=== PATIENT | female | born 1995 | race Caucasian/White ===

== ENCOUNTER 2017-12-28 20:56 | Emergency (ER) | END 2017-12-28 22:12 | disposition home or self-care (01) ==

== ENCOUNTER 2018-02-04 23:27 | Emergency (ER) | END 2018-02-05 03:01 | disposition home or self-care (01) ==

== ENCOUNTER 2018-02-22 18:04 | Emergency (ER) | END 2018-02-22 21:42 | disposition home or self-care (01) ==

== ENCOUNTER 2018-05-10 18:40 | Emergency (ER) | payer BC ==
[~2018-05-10] VITALS: Ht 160 cm; Wt 71.5 kg
[~2018-05-10 18:40] MED LIST: HYDR-3980 PO; LEVE-5 PO; LEVE750T70 PO
[2018-05-10 18:50] VITALS: Ht 160 cm; Wt 71.5 kg
[2018-05-10 19:26] VITALS: BP 132/81; PULSE 79; RESP 18
[2018-05-10] MEDS ORDERED: IBUP-1542 PO (19:51)
--- NOTE | 2018-05-10 19:53 | ERD ---
ER Documentation Chief Complaint Chief Complaint chest pain radiating to left arm x 1 week HPI Patient is a 23-year-old female with seizures who presents with chest pain. The patient has left-sided chest pain which started 1 week ago. Yesterday the pain was worse. The pain has been constant. The patient has had no treatment as of yet. The patient denies any trauma. The patient has had no recent seizure. Upon review of old medical records the patient has multiple visits to the ER. The patient does not currently have a primary doctor. ROS All systems reviewed and are negative except as per history of present illness. Medications Home Meds Active Scripts Ibuprofen* (Motrin*) 600 Mg Tab, 600 MG PO Q6H PRN for PAIN AND OR ELEVATED TEMP, #30 TAB Prov:EDUARDO NEIL MD 05/10/18 Hydrocodone/Acetaminophen ([place] 10-325 Tablet) 1 Each Tablet, 1 TAB PO Q6H PRN for PAIN, #7 TAB Prov:TODD ARNOLDSTOLOS A. DO 02/22/18 Levetiracetam* (Keppra*) 750 Mg Tablet, 750 MG PO BID, #60 TAB Prov:LEKKOS,APOSTOLOS A. DO 02/22/18 Reported Medications Levetiracetam* (Keppra*) 500 Mg Tablet, 500 MG PO BID, TAB 02/22/18 Allergies Allergies: Coded Allergies: No Known Allergies (Unverified Allergy, Unknown, 02/22/18) PMhx/Soc History of Surgery: No Anesthesia Reaction: No Hx Neurological Disorder: Yes (SEIZURES, MIGRAINES) Hx Respiratory Disorders: Yes (BRONCHITIS) Hx Cardiac Disorders: No Hx Psychiatric Problems: No Hx Miscellaneous Medical Probl: Yes (SEIZURES) Hx Alcohol Use: No Hx Substance Use: No Hx Tobacco Use: No Smoking Status: Never smoker FmHx Family History: No coronary disease Physical Exam Vitals Vital Signs Date Temp Pulse Resp B/P (MAP) Pulse Ox O2 O2 Flow FiO2 Time Delivery Rate 05/10/18 98.8 79 18 132/81 99 19:26 (98) 05/10/18 98.8 85 18 132/80 99 18:50 (97) Physical Exam Const: No acute distress Head: Atraumatic Eyes: Normal Conjunctiva ENT: Normal External Ears, Nose and Mouth. Neck: Full range of motion. No meningismus. Resp: Clear to auscultation bilaterally Cardio: Regular rate and rhythm, no murmurs Abd: Soft, non tender, non distended. Normal bowel sounds Skin: No petechiae or rashes Back: No midline or flank tenderness Ext: No cyanosis, or edema Neur: Awake and alert Psych: Normal Mood and Affect Results 24 hrs Laboratory Tests Test 05/10/18 19:17 POC Beta HCG, Qualitative NEGATIVE Current Medications Medications Dose Sig/Mari Start Time Status Last (Trade) Ordered Route PRN Stop Time Admin Dose Reason Admin Ibuprofen 800 mg ONCE ONCE 05/10/18 DC 05/10/18 (Motrin) PO 20:00 19:38 05/10/18 20:01 Procedures/MDM EKG read by me: Rate/Rhythm: Regular rate and rhythm at a rate of 79 Intervals: Normal Impression: No evidence of ischemia or arrhythmia Chest x-ray negative per radiology. test negative. Patient is a 23-year-old female with seizure who presents with chest pain. EKG is negative. Chest x-ray was negative. test is negative. At this point I doubt acute coronary syndrome, pneumonia, pneumothorax, pulmonary embolism, or aortic dissection. The patient will be discharged home with a prescription for ibuprofen. She should follow-up with a local clinics within 24-48 hours for reevaluation. Departure Diagnosis: Primary Impression: Chest pain Chest pain type: unspecified Qualified Codes: R07.9 - Chest pain, unspecified Condition: Fair Patient Instructions: Chest Pain, Uncertain Cause Referrals: [facility] YOU HAVE RECEIVED A MEDICAL SCREENING EXAM AND THE RESULTS INDICATE THAT YOU DO NOT HAVE A CONDITION THAT REQUIRES URGENT TREATMENT IN THE EMERGENCY DEPARTMENT. FURTHER EVALUATION AND TREATMENT OF YOUR CONDITION CAN WAIT UNTIL YOU ARE SEEN IN YOUR DOCTORS OFFICE WITHIN THE NEXT 1-2 DAYS. IT IS YOUR RESPONSIBILITY TO MAKE AN APPOINTMENT FOR FOLOW-UP CARE. IF YOU HAVE A PRIMARY DOCTOR --you should call your primary doctor and schedule an appointment IF YOU DO NOT HAVE A PRIMARY DOCTOR YOU CAN CALL OUR PHYSICIAN REFERRAL HOTLINE AT IF YOU CAN NOT AFFORD TO SEE A PHYSICIAN YOU CAN CHOSE FROM THE FOLLOWING [facility] [address] [facility]. [facility] [address] [facility] [address] [facility]. [facility] [address] [facility]. [facility] [address] [facility]. [facility] [address] Additional Instructions: Call your primary care doctor TOMORROW for an appointment during the next 1-2 days.See the doctor sooner or return here if your condition worsens before your appointment time. EDUARDO NEIL MD May 10, 2018 19:53
[2018-05-10] MEDS ORDERED: IBUPROFEN 800 MG TAB PO ONE (20:00)
== END 2018-05-10 20:23 | disposition home or self-care (01) ==
LOC: E/R 18:40
DX: R07.9 Chest pain, unspecified (principal)
CPT/HCPCS: 71045; 81025; 93005; 99284; Z7610

== ENCOUNTER 2018-08-16 13:06 | Emergency (ER) | payer BC ==
[~2018-08-16] VITALS: Ht 160 cm; Wt 70.7 kg
[~2018-08-16 13:06] MED LIST changes: +IBUP-1542 PO
[2018-08-16 13:09] VITALS: BP 124/62; PULSE 89; RESP 22; Ht 160 cm; Wt 70.7 kg
[2018-08-16] MEDS ORDERED: SOD CHLORIDE 0.9% 1,000 ML IV STA (13:22)
[2018-08-16] MEDS ORDERED: ACET500C5 PO (15:31)
[2018-08-16] MEDS ORDERED: METO10TA92 PO (15:31)
[2018-08-16] MEDS ORDERED: CEPH-443 PO (15:31)
--- NOTE | 2018-08-16 16:04 | ERD ---
ER Documentation Chief Complaint Chief Complaint c/o abdominal pain x1 week, with dizziness. No BM x3 days. 9.5wks HPI 23-year-old female patient with no significant past medical history presents to ED complaining of abdominal pain that started 1 week ago. States that it is mainly in the right lower quadrant. Describes as sharp and rates a 9 out of 10. States her last menstruation was on June 10, 2018. She is a . Denies any wheezing, shortness of breath, nausea, vomiting, diarrhea, neck stiffness. ROS All systems reviewed and are negative except as per history of present illness. Medications Home Meds Active Scripts Cephalexin* (Keflex*) 500 Mg Capsule, 500 MG PO QID for 7 Days, CAP Prov:YAZMIN BRADFORD PA-C 08/16/18 Acetaminophen* (Tylophen*) 500 Mg Capsule, 1 CAP PO Q6H PRN for PAIN AND OR ELEVATED TEMP, #20 CAP Prov:YAZMIN BRADFORD PA-C 08/16/18 Metoclopramide* (Reglan*) 10 Mg Tablet, 10 MG PO Q6 PRN for NAUSEA AND/OR VOMITING, #10 TAB Prov:YAZMIN BRADFORD PA-C 08/16/18 Ibuprofen* (Motrin*) 600 Mg Tab, 600 MG PO Q6H PRN for PAIN AND OR ELEVATED TEMP, #30 TAB Prov:EDUARDO NEIL MD 05/10/18 Hydrocodone/Acetaminophen ([place] 10-325 Tablet) 1 Each Tablet, 1 TAB PO Q6H PRN for PAIN, #7 TAB Prov:KRISH ARNOLD DO 02/22/18 Levetiracetam* (Keppra*) 750 Mg Tablet, 750 MG PO BID, #60 TAB Prov:KRISH ARNOLD DO 02/22/18 Reported Medications Levetiracetam* (Keppra*) 500 Mg Tablet, 500 MG PO BID, TAB 02/22/18 Allergies Allergies: Coded Allergies: No Known Allergies (Unverified Allergy, Unknown, 02/22/18) PMhx/Soc History of Surgery: No Anesthesia Reaction: No Hx Neurological Disorder: Yes (SEIZURES, MIGRAINES) Hx Respiratory Disorders: Yes (BRONCHITIS) Hx Cardiac Disorders: No Hx Psychiatric Problems: No Hx Miscellaneous Medical Probl: Yes (SEIZURES) Hx Alcohol Use: No Hx Substance Use: No Hx Tobacco Use: No Smoking Status: Never smoker FmHx Family History: No diabetes, No coronary disease Physical Exam Vitals Vital Signs Date Temp Pulse Resp B/P (MAP) Pulse Ox O2 O2 Flow FiO2 Time Delivery Rate 08/16/18 99.2 89 22 124/62 100 13:09 (82) Physical Exam Const: Stp-tfu-gihbfocaq, well-nourished. In no acute distress. Head: Atraumatic, normocephalic Eyes: Normal Conjunctiva without injection. No purulent discharge. ENT: Normal external ear, nose. Moist oropharynx without tonsillar exudates. Non -erythematous pharynx. Uvula midline. No drooling. No trismus. Neck: No cervical midline tenderness. Full range of motion. No meningismus. No cervical lymphadenopathy. No JVD. Resp: Clear to auscultation bilaterally. No wheezing, rhonchi, rales, or crackles. No accessory muscle use. No retractions. Cardio: Regular rate and rhythm. No murmurs, rubs or gallops. Abd: Soft, right and left lower quadrant tenderness, non distended. Normal bowel sounds. No palpable masses. No rebound tenderness. No guarding. Negative McBurney's point. Negative psoas sign. Negative obturator sign. Skin: No petechiae or rashes Back: No midline tenderness. No CVA tenderness. Ext: No cyanosis, or edema. Neur: Awake and alert. Normal gait. Normal coordination. Psych: Normal Mood and Affect Result Diagram: 08/16/18 1337 08/16/18 1337 Results 24 hrs Laboratory Tests Test 08/16/18 13:37 White Blood Count 10.0 10^3/ul Red Blood Count . 10^6/ul Hemoglobin 12.5 g/dl Hematocrit 37.2 % Mean Corpuscular Volume 88.8 fl Mean Corpuscular Hemoglobin 29.8 pg Mean Corpuscular Hemoglobin Concent 33.6 g/dl Red Cell Distribution Width 12.8 % Platelet Count 249 10^3/UL Mean Platelet Volume 9.6 fl Immature Granulocytes % 0.300 % Neutrophils % 71.2 % Lymphocytes % 20.1 % Monocytes % 7.3 % Eosinophils % 0.8 % Basophils % 0.3 % Nucleated Red Blood Cells % 0.0 /100WBC Immature Granulocytes # 0.030 10^3/ul Neutrophils # 7.1 10^3/ul Lymphocytes # 2.0 10^3/ul Monocytes # 0.7 10^3/ul Eosinophils # 0.1 10^3/ul Basophils # 0.0 10^3/ul Nucleated Red Blood Cells # 0.0 10^3/ul Urine Color YELLOW Urine Clarity CLOUDY Urine pH 5.0 Urine Specific [place] 1.035 Urine Ketones 1+ mg/dL Urine Nitrite NEGATIVE mg/dL Urine Bilirubin NEGATIVE mg/dL Urine Urobilinogen NEGATIVE mg/dL Urine Leukocyte Esterase TRACE Raquel/ul Urine Microscopic RBC 2 /HPF Urine Microscopic WBC 3 /HPF Urine Squamous Epithelial Cells MANY /HPF Urine Bacteria FEW /HPF Urine Mucus FEW /HPF Urine Hemoglobin NEGATIVE mg/dL Urine Glucose NEGATIVE mg/dL Urine Total Protein 1+ mg/dl Sodium Level 136 mmol/L Potassium Level 3.8 mmol/L Chloride Level 105 mmol/L Carbon Dioxide Level 21 mmol/L Anion Gap 10 Blood Urea Nitrogen 11 mg/dl Creatinine 0.59 mg/dl Est Glomerular Filtrat Rate mL/min > 60 mL/min Glucose Level 88 mg/dl Calcium Level 8.7 mg/dl Total Bilirubin 0.3 mg/dl Direct Bilirubin 0.00 mg/dl Indirect Bilirubin 0.3 mg/dl Aspartate Amino Transf (AST/SGOT) 18 IU/L Alanine Aminotransferase (ALT/SGPT) 20 IU/L Alkaline Phosphatase 55 IU/L Total Protein 7.2 g/dl Albumin 3.9 g/dl Globulin 3.30 g/dl Albumin/Globulin Ratio 1.18 Lipase 49 U/L Beta HCG, Quantitative 87592.0 mIU/ml Current Medications Medications Dose Sig/Mari Start Time Status Last (Trade) Ordered Route PRN Stop Time Admin Dose Reason Admin Sodium 1,000 ml @ Q1H STAT 08/16/18 DC 08/16/18 Chloride 1,000 mls/hr IV 13:22 08/16/18 13:55 14:21 Procedures/MDM 23-year-old female patient with no significant past medical history presents to the ED, with pelvic pain in her . Patient is a . Patient is afebrile and nontoxic-appearing. An ultrasound, beta-hCG, CBC, type and RH, UA was ordered to evaluate patient. CBC: No evidence of severe infection or anemia Urine: No elevation in nitrites, trace leukocyte esterase, hematuria. Few bacteria. Rh: 81558. No indication for Rhogam at this time. beta Hcg: O positive IMPRESSION: 1. The appendix is not visualized. 2. There is no free fluid in the pelvis IMPRESSION: Single intrauterine gestation of approximate gestational age 9 weeks 1 days by ultrasound criteria with positive heart beat. No subchorionic hemorrhage. She has a single IUP of 9 weeks, 1 day. Patient was noted to have trace leukocyte esterase and will be treated for urinary tract infection in her . When patient initially presented she stated that she had some right lower pelvic pain, ultrasound did not visualize an appendix however if patient still has any worsening abdominal pain, she should return to the ED in 8-12 hours for reexamination of the abdomen. Patient is afebrile and nontoxic appearing. No Leukocytosis. Patient agreed with observation plan. Patient's bleeding symptoms have stabilized while in the department. Low suspicion for symptomatic anemia, ectopic , sepsis, PID, appendicitis, ovarian torsion, tubo-ovarian abscess, surgical abdomen, or other emergent conditions. Patient was educated that there is a risk for threatened . Diagnosis: Pain during Discharge medications: Keflex, Tylenol, Reglan Follow up with primary care physician in 1-2 days. Instructed patient to return to the ED sooner for any worsening symptoms. Patient's questions were answered. Patient is hemodynamically stable. Patient understood and agreed with discharge plan. Patient discharged stable. Disclaimer: Inadvertent spelling and grammatical errors are likely due to EHR/dictation software use and do not reflect on the overall quality of patient care. Also, please note that the electronic time recorded on this note does not necessarily reflect the actual time of the patient encounter. Departure Diagnosis: Primary Impression: Pelvic pain during Condition: Stable Patient Instructions: Urinary Tract Infections in Women, : Your First Trimester Changes Referrals: [facility] YOU HAVE RECEIVED A MEDICAL SCREENING EXAM AND THE RESULTS INDICATE THAT YOU DO NOT HAVE A CONDITION THAT REQUIRES URGENT TREATMENT IN THE EMERGENCY DEPARTMENT. FURTHER EVALUATION AND TREATMENT OF YOUR CONDITION CAN WAIT UNTIL YOU ARE SEEN IN YOUR DOCTORS OFFICE WITHIN THE NEXT 1-2 DAYS. IT IS YOUR RESPONSIBILITY TO MAKE AN APPOINTMENT FOR FOLOW-UP CARE. IF YOU HAVE A PRIMARY DOCTOR --you should call your primary doctor and schedule an appointment IF YOU DO NOT HAVE A PRIMARY DOCTOR YOU CAN CALL OUR PHYSICIAN REFERRAL HOTLINE AT IF YOU CAN NOT AFFORD TO SEE A PHYSICIAN YOU CAN CHOSE FROM THE FOLLOWING [facility] [address] [facility] [address] [facility] [address] [facility] [address] [facility] [address] [facility]. [facility] [address] [facility]. [place] YOU HAVE RECEIVED A MEDICAL SCREENING EXAM AND THE RESULTS INDICATE THAT YOU DO NOT HAVE A CONDITION THAT REQUIRES URGENT TREATMENT IN THE EMERGENCY DEPARTMENT. FURTHER EVALUATION AND TREATMENT OF YOUR CONDITION CAN WAIT UNTIL YOU ARE SEEN IN YOUR DOCTORS OFFICE WITHIN THE NEXT 1-2 DAYS. IT IS YOUR RESPONSIBILITY TO MAKE AN APPOINTMENT FOR FOLOW-UP CARE. IF YOU HAVE A PRIMARY DOCTOR --you should call your primary doctor and schedule and appointment IF YOU DO NOT HAVE A PRIMARY DOCTOR YOU CAN CALL OUR PHYSICIAN REFERRAL HOTLINE AT . IF YOU CAN NOT AFFORD TO SEE A PHYSICIAN YOU CAN CHOSE FROM THE FOLLOWING [facility]: [facility] [address] [place] [address] [facility] [address] [place] [address] [facility] [address] [place] [address] [facility]CIAL[facility] Additional Instructions: Return to the ED in 8-12 hours for a reexaminatin of the abdomen if you still have persistent right lower quadrant abdominal pain. See the doctor sooner or return here if your condition worsens before your appointment time. YAZMIN BRADFORD PA-C Aug 16, 2018 15:51
== END 2018-08-16 15:42 | disposition home or self-care (01) ==
LOC: FTE 13:06
DX: O26.891 Other specified pregnancy related conditions, first trimester (principal); R10.2 Pelvic and perineal pain; Z3A.09 9 weeks gestation of pregnancy
CPT/HCPCS: 36415; 76705; 76801; 80053; 81001; 83690; 84702; 85025; 86900; 86901; 96360; 99285; J7030

== ENCOUNTER 2018-08-23 20:20 | Emergency (ER) | payer BC ==
[~2018-08-23] VITALS: Ht 157.5 cm; Wt 71.7 kg
[~2018-08-23 20:20] MED LIST changes: +ACET500C5 PO; +CEPH-443 PO; +METO10TA92 PO
[2018-08-23 20:38] VITALS: Ht 157.5 cm; Wt 71.7 kg
[2018-08-23] MEDS ORDERED: SOD CHLORIDE 0.9% 1,000 ML IV STA (23:51)
[2018-08-23] MEDS ORDERED: ACETAMINOPHEN 325 MG TAB PO STA (23:51)
--- NOTE | 2018-08-24 00:07 | ERD ---
ER Documentation Chief Complaint Chief Complaint VAGINAL BLEEDING AND CRAMPING - HPI 23-year-old female in her 12th week of presents with complaint of vaginal bleeding and abdominal cramping. States that the vaginal bleeding started at 6 PM today. In addition she states she is been having cramping for the past 2 weeks. She was here on August 16, diagnosed with a UTI, and told that if the abdominal pain continues or worsens she would need to come back to get an MRI. She states that the cramping is in the lower right quadrant. Denies fevers, vomiting, diarrhea, flank pain, dysuria, hematuria ROS All systems reviewed and are negative except as per history of present illness. Medications Home Meds Active Scripts Acetaminophen* (Tylophen*) 500 Mg Capsule, 2 CAP PO Q8H PRN for PAIN AND OR ELEVATED TEMP, #20 CAP Prov:ALL VELA 08/24/18 Cephalexin* (Keflex*) 500 Mg Capsule, 500 MG PO QID for 7 Days, CAP Prov:YAZMIN BRADFORD-C 08/16/18 Acetaminophen* (Tylophen*) 500 Mg Capsule, 1 CAP PO Q6H PRN for PAIN AND OR ELEVATED TEMP, #20 CAP Prov:YAZMIN BRADFORD-C 08/16/18 Metoclopramide* (Reglan*) 10 Mg Tablet, 10 MG PO Q6 PRN for NAUSEA AND/OR VOMITING, #10 TAB Prov:YAZMIN BRADFORD-C 08/16/18 Ibuprofen* (Motrin*) 600 Mg Tab, 600 MG PO Q6H PRN for PAIN AND OR ELEVATED TEMP, #30 TAB Prov:EDUARDO NEIL MD 05/10/18 Hydrocodone/Acetaminophen ([place] 10-325 Tablet) 1 Each Tablet, 1 TAB PO Q6H PRN for PAIN, #7 TAB Prov:KRISH ARNOLD DO 02/22/18 Levetiracetam* (Keppra*) 750 Mg Tablet, 750 MG PO BID, #60 TAB Prov:KRISH ARNOLD DO 02/22/18 Reported Medications Levetiracetam* (Keppra*) 500 Mg Tablet, 500 MG PO BID, TAB 02/22/18 Allergies Allergies: Coded Allergies: No Known Allergies (Unverified Allergy, Unknown, 10/14/18) PMhx/Soc History of Surgery: No Anesthesia Reaction: No Hx Neurological Disorder: Yes (SEIZURES, MIGRAINES) Hx Respiratory Disorders: Yes (BRONCHITIS) Hx Cardiac Disorders: No Hx Psychiatric Problems: No Hx Miscellaneous Medical Probl: Yes (SEIZURES) Hx Alcohol Use: No Hx Substance Use: No Hx Tobacco Use: No FmHx Family History: No diabetes, No coronary disease, No other Physical Exam Vitals Physical Exam Const: No acute distress Head: Atraumatic Eyes: Normal Conjunctiva ENT: Normal External Ears, Nose and Mouth. Neck: Full range of motion. No meningismus. Resp: Clear to auscultation bilaterally Cardio: Regular rate and rhythm, no murmurs Abd: Tenderness to palpation with guarding in the upper left quadrant. Normal bowel sounds. No McBurney's tenderness. Negative psoas. Negative Rovsing's. Skin: No petechiae or rashes Back: No midline or flank tenderness Ext: No cyanosis, or edema Neur: Awake and alert Psych: Normal Mood and Affect Result Diagram: 08/24/18 0001 08/24/18 0001 Results 24 hrs Laboratory Tests Test 08/23/18 23:52 08/24/18 00:01 Urine Color YELLOW Urine Clarity SLIGHTLY CLOUDY Urine pH 5.0 Urine Specific [place] 1.029 Urine Ketones TRACE mg/dL Urine Nitrite NEGATIVE mg/dL Urine Bilirubin NEGATIVE mg/dL Urine Urobilinogen NEGATIVE mg/dL Urine Leukocyte Esterase NEGATIVE Raquel/ul Urine Microscopic RBC 0 /HPF Urine Microscopic WBC 1 /HPF Urine Squamous Epithelial Cells FEW /HPF Urine Bacteria FEW /HPF Urine Mucus FEW /HPF Urine Hemoglobin NEGATIVE mg/dL Urine Glucose NEGATIVE mg/dL Urine Total Protein NEGATIVE mg/dl White Blood Count 11.0 10^3/ul Red Blood Count 4.10 10^6/ul Hemoglobin 12.4 g/dl Hematocrit 36.6 % Mean Corpuscular Volume 89.3 fl Mean Corpuscular Hemoglobin 30.2 pg Mean Corpuscular Hemoglobin Concent 33.9 g/dl Red Cell Distribution Width 12.9 % Platelet Count 253 10^3/UL Mean Platelet Volume 9.6 fl Immature Granulocytes % 0.400 % Neutrophils % 65.3 % Lymphocytes % 25.0 % Monocytes % 7.7 % Eosinophils % 1.1 % Basophils % 0.5 % Nucleated Red Blood Cells % 0.0 /100WBC Immature Granulocytes # 0.040 10^3/ul Neutrophils # 7.2 10^3/ul Lymphocytes # 2.7 10^3/ul Monocytes # 0.8 10^3/ul Eosinophils # 0.1 10^3/ul Basophils # 0.1 10^3/ul Nucleated Red Blood Cells # 0.0 10^3/ul Sodium Level 136 mmol/L Potassium Level 3.6 mmol/L Chloride Level 101 mmol/L Carbon Dioxide Level 25 mmol/L Anion Gap 10 Blood Urea Nitrogen 8 mg/dl Creatinine 0.51 mg/dl Est Glomerular Filtrat Rate mL/min > 60 mL/min Glucose Level 97 mg/dl Calcium Level 8.9 mg/dl Total Bilirubin 0.2 mg/dl Direct Bilirubin 0.00 mg/dl Indirect Bilirubin 0.2 mg/dl Aspartate Amino Transf (AST/SGOT) 17 IU/L Alanine Aminotransferase (ALT/SGPT) 15 IU/L Alkaline Phosphatase 51 IU/L Total Protein 7.5 g/dl Albumin 4.1 g/dl Globulin 3.40 g/dl Albumin/Globulin Ratio 1.20 Lipase 40 U/L Beta HCG, Quantitative 22731.0 mIU/ml Current Medications Medications Dose Sig/Mari Start Time Status Last (Trade) Ordered Route PRN Stop Time Admin Dose Reason Admin Sodium 1,000 ml @ Q1H STAT 08/23/18 DC 08/24/18 Chloride 1,000 mls/hr IV 23:51 00:08 08/24/18 00:50 650 mg ONCE STAT 08/23/18 DC 08/24/18 Acetaminophen PO 23:51 00:30 (Tylenol 08/23/18 23:56 Tab) Procedures/MDM DIAGNOSTIC IMAGING REPORT Patient: VIKI PALM : 1995 Age: 23 Sex: F MR #: [id number] DOS: 08/24/18 2351 Ordering MD: ALL VELA Location: [facility] Room/Bed: PROCEDURE: Obstetrical ultrasound. CLINICAL INDICATION: Vaginal bleeding. TECHNIQUE: Multiple sonographic images of the pelvis were obtained with transabdominal technique. Images were obtained with starkey scale and color Doppler. COMPARISON: 08/16/2018. FINDINGS: There is an intrauterine gestational sac with a pole identified. heart tones of 159 beats per minute are identified. The crown-rump length averages 3.73 cm, compatible with 10 weeks and 4 days. The mean sac diameter averages 3.77 cm, compatible with 9 weeks and 1 day. A yolk sac is not visualized. No subchorionic collection is identified. There is no pelvic free fluid. The right ovary measures 3.7 x 2.8 x 2.9 cm and demonstrates normal flow. The left ovary is not visualized. There is a hypoechoic cyst within the right ovary measuring 2.2 x 1.9 x 2.0 cm. There is no suspicious adnexal mass identified. IMPRESSION: Single live intrauterine with an estimated gestational age of 9 weeks and 6 days, with an ultrasound MITCHELL of 03/23/2019. Right ovarian 2.2 cm cyst. Left ovary not visualized. .Jose Caicedo MD, MD Date Time Electronically viewed and signed by .Jose Caicedo MD, MD on 08/24/2018 02:28 .T/ CC: ALL VELA [id number] DIAGNOSTIC IMAGING REPORT Patient: VIKI PALM : 1995 Age: 23 Sex: F MR #: [id number] DOS: 08/24/18 0007 Ordering MD: ALL VELA Location: [facility] Room/Bed: PROCEDURE: Obstetrical ultrasound, limited. CLINICAL INDICATION: Vaginal bleeding. TECHNIQUE: Transabdominal evaluation of the cervix was performed. The images were reviewed on a PACS workstation. COMPARISON: No prior studies are available for comparison. FINDINGS: The cervix is closed measuring 4.7 cm. IMPRESSION: Cervical length of 4.7 cm. .Jose Caicedo MD, MD Date Time Electronically viewed and signed by .Jose Caicedo MD, MD on 08/24/2018 02:25 .T/ CC: ALL VELA [id number] ER Course: CBC, UA, beta quant HCG, type and RH, vaginal US/abdominal US ordered. All WNL. MDM: CBC, UA, beta quant HCG, type and RH, vaginal US/abdominal US ordered. All results within limits. I discussed the case with my supervising physician Dr. Babb regarding with MRI is warranted or not any stated in this case he would not be given patient's history, exam findings, and labs and imaging.. I have low suspicion for ectopic based on results of US, hemodynamic stability, physical exam and patient history. I have low suspicion for septic , pyelonephritis, placenta abrupta, appendicitis, cholecystitis, bowel obstruction, ovarian torsion, symptomatic anema, PID, surgical abdomen, or other life threatening conditions based on patient history, physical exam, and lab/imaging results. Patient discharged with strict ER precautions. Patient advised to follow up with PMD and crime lab technician. All questions answered at discharge. Departure Diagnosis: Primary Impression: Vaginal bleeding in patient at less than 20 weeks gestation Additional Impression: Pelvic pain during Condition: Stable ALL VELA Aug 24, 2018 00:07
[2018-08-24] MEDS ORDERED: ACET500C5 PO (03:16)
[2018-08-24 03:28] VITALS: BP 92/65; PULSE 88; RESP 18
== END 2018-08-24 03:31 | disposition home or self-care (01) ==
LOC: FTE 20:20
DX: O20.9 Hemorrhage in early pregnancy, unspecified (principal); R10.2 Pelvic and perineal pain; O26.891 Other specified pregnancy related conditions, first trimester; Z3A.09 9 weeks gestation of pregnancy
CPT/HCPCS: 76801; 76817; 80053; 81001; 81003; 83690; 84702; 85025; 86900; 86901; J7030; Z7610; 36415; 96360

== ENCOUNTER 2018-10-02 11:35 | Emergency (ER) | payer BC ==
[~2018-10-02] VITALS: Ht 157.5 cm; Wt 72.0 kg
[2018-10-02 11:46] VITALS: RESP 18; Ht 157.5 cm; Wt 72.0 kg
[2018-10-02] MEDS ORDERED: SOD CHLORIDE 0.9% 1,000 ML IV STA (13:21)
[2018-10-02] MEDS ORDERED: ACETAMINOPHEN 325 MG TAB PO STA (13:21)
--- NOTE | 2018-10-02 13:33 | ERD ---
ER Documentation Chief Complaint Chief Complaint pt is bib family with c/o cramps x few days 16 wks preg HPI This is a 23-year-old female who presents ED with complaints of lower pelvic cramping roughly 16 weeks . Patient states that the lower pelvic cramping started this morning and she noticed some light spotting. Patient denies passing any clots. Patient states that the same lower pelvic cramping has occurred 4 times throughout her . Patient was seen at her OB doctor's office at [facility] and was advised to come to the emergency department to have ultrasound performed. Denies fever, chills, nausea, vomiting, diarrhea, constipation, hematemesis, melena, hematochezia, dysuria, hematuria, dizziness, lightheadedness and all other symptoms ROS All systems reviewed and are negative except as per history of present illness. Medications Home Meds Active Scripts Acetaminophen* (Tylophen*) 500 Mg Capsule, 2 CAP PO Q8H PRN for PAIN AND OR ELEVATED TEMP, #20 CAP Prov:ALL VELA 08/24/18 Cephalexin* (Keflex*) 500 Mg Capsule, 500 MG PO QID for 7 Days, CAP Prov:YAZMIN BRADFORD PA-C 08/16/18 Acetaminophen* (Tylophen*) 500 Mg Capsule, 1 CAP PO Q6H PRN for PAIN AND OR ELEVATED TEMP, #20 CAP Prov:YAZMIN BRADFORD PA-C 08/16/18 Metoclopramide* (Reglan*) 10 Mg Tablet, 10 MG PO Q6 PRN for NAUSEA AND/OR VOMITING, #10 TAB Prov:YAZMIN BRADFORD PA-C 08/16/18 Ibuprofen* (Motrin*) 600 Mg Tab, 600 MG PO Q6H PRN for PAIN AND OR ELEVATED TEMP, #30 TAB Prov:EDUARDO NEIL MD 05/10/18 Hydrocodone/Acetaminophen ([place] 10-325 Tablet) 1 Each Tablet, 1 TAB PO Q6H PRN for PAIN, #7 TAB Prov:KRISH ARNOLD DO 02/22/18 Levetiracetam* (Keppra*) 750 Mg Tablet, 750 MG PO BID, #60 TAB Prov:KRISH ARNOLD DO 02/22/18 Reported Medications Levetiracetam* (Keppra*) 500 Mg Tablet, 500 MG PO BID, TAB 02/22/18 Allergies Allergies: Coded Allergies: No Known Allergies (Unverified Allergy, Unknown, 02/22/18) PMhx/Soc History of Surgery: No Anesthesia Reaction: No Hx Neurological Disorder: Yes (SEIZURES, MIGRAINES) Hx Respiratory Disorders: Yes (BRONCHITIS) Hx Cardiac Disorders: No Hx Psychiatric Problems: No Hx Miscellaneous Medical Probl: Yes (SEIZURES) Hx Alcohol Use: No Hx Substance Use: No Hx Tobacco Use: No FmHx Family History: No diabetes Physical Exam Vitals Vital Signs Date Temp Pulse Resp B/P (MAP) Pulse Ox O2 O2 Flow FiO2 Time Delivery Rate 10/02/18 97.9 72 18 109/55 100 11:46 (73) Physical Exam Physical Exam Vitals signs: Reviewed by me. General: Well developed, well nourished, in no acute distress. Patient is awake and alert. Head: Normocephalic, atraumatic. Eyes: Normal conjunctiva, Pupils PERRLA, EOM intact grossly ENT: Pharynx is clear, Moist mucous membranes, external ears, nose and mouth normal Neck: Supple, no masses, lymphadenopathy or JVD Respiratory: Clear to auscultation bilaterally with no wheezing, rhonchi, rales, no distress Cardiovascular: RRR, no murmurs, rubs, or gallops Abdominal: Soft, nondistended, no peritoneal signs, no rigidity, no surgical abdomen, bowel sounds present all 4 quadrants, mild suprapubic tenderness, nontender to palpation all 4 quadrants, McBurney's point nontender, no rebound tenderness : Deferred MSK: No edema, no unilateral swelling, 5/5 strength Back: No midline tenderness. No flank tenderness Neurologic: Alert and oriented, moving all extremities, normal speech, no focal weakness, no cerebellar signs. Normal mentation Skin: warm and dry, No rash Psych: Normal mood Result Diagram: 10/02/18 1349 10/02/18 1349 Results 24 hrs Laboratory Tests Test 10/02/18 13:48 10/02/18 13:49 Urine Color YELLOW Urine Clarity CLEAR Urine pH 5.0 Urine Specific [place] 1.018 Urine Ketones 1+ mg/dL Urine Nitrite NEGATIVE mg/dL Urine Bilirubin NEGATIVE mg/dL Urine Urobilinogen NEGATIVE mg/dL Urine Leukocyte Esterase NEGATIVE Raquel/ul Urine Hemoglobin NEGATIVE mg/dL Urine Glucose NEGATIVE mg/dL Urine Total Protein NEGATIVE mg/dl White Blood Count 10.5 10^3/ul Red Blood Count 4.18 10^6/ul Hemoglobin 12.9 g/dl Hematocrit 38.3 % Mean Corpuscular Volume 91.6 fl Mean Corpuscular Hemoglobin 30.9 pg Mean Corpuscular Hemoglobin Concent 33.7 g/dl Red Cell Distribution Width 12.7 % Platelet Count 231 10^3/UL Mean Platelet Volume 9.7 fl Immature Granulocytes % 0.400 % Neutrophils % 70.1 % Lymphocytes % 21.6 % Monocytes % 6.5 % Eosinophils % 1.0 % Basophils % 0.4 % Nucleated Red Blood Cells % 0.0 /100WBC Immature Granulocytes # 0.040 10^3/ul Neutrophils # 7.4 10^3/ul Lymphocytes # 2.3 10^3/ul Monocytes # 0.7 10^3/ul Eosinophils # 0.1 10^3/ul Basophils # 0.0 10^3/ul Nucleated Red Blood Cells # 0.0 10^3/ul Sodium Level 136 mmol/L Potassium Level 4.1 mmol/L Chloride Level 103 mmol/L Carbon Dioxide Level 24 mmol/L Anion Gap 9 Blood Urea Nitrogen 4 mg/dl Creatinine 0.51 mg/dl Est Glomerular Filtrat Rate mL/min > 60 mL/min Glucose Level 82 mg/dl Calcium Level 9.2 mg/dl Total Bilirubin 0.4 mg/dl Direct Bilirubin 0.00 mg/dl Indirect Bilirubin 0.4 mg/dl Aspartate Amino Transf (AST/SGOT) 24 IU/L Alanine Aminotransferase (ALT/SGPT) 21 IU/L Alkaline Phosphatase 44 IU/L Total Protein 7.4 g/dl Albumin 4.0 g/dl Globulin 3.40 g/dl Albumin/Globulin Ratio 1.17 Beta HCG, Quantitative 86075.0 mIU/ml Current Medications Medications Dose Sig/Mari Start Time Status Last (Trade) Ordered Route PRN Stop Time Admin Dose Reason Admin Sodium 1,000 ml @ Q1H STAT 10/02/18 DC 10/02/18 Chloride 1,000 mls/hr IV 13:21 14:24 10/02/18 14:20 650 mg ONCE STAT 10/02/18 DC 10/02/18 Acetaminophen PO 13:21 14:25 (Tylenol 10/02/18 13:24 Tab) Procedures/MDM [place] [address] Radiology Main Line: [phone] DIAGNOSTIC IMAGING REPORT Patient: VIKI PALM : 1995 Age: 23 Sex: F MR #: [id number] DOS: 10/02/18 1321 Ordering MD: IFTIKHAR WRIGHT PA-C Location: [facility] Room/Bed: PROCEDURE: US OB. CLINICAL INDICATION: Pelvic pain TECHNIQUE: Multiple sonographic images of the pelvis and gravid uterus were obtained. The images were reviewed on a PACS workstation. COMPARISON: US 08/24/2018; US PELVIS 08/24/2018 FINDINGS: Gestation: Single intrauterine gestation. Cardiac activity: 137 bpm. Presentation: Variable. Placenta: Location: Posterior Appearance: No previa or abruption. Measurements: BPD = 3.45 cm, 16 weeks 5 days HC = 12.58 cm, 16 weeks 2 days AC = 11.11 cm, 17 weeks 0 days FL = 1.81 cm, 15 weeks 3 days Gestational age: AUA estimated gestational age: 16 weeks 3 days LMP estimated gestational age: 16 weeks 2 days AUA estimated date of delivery: 03/16/2019 EFW = 148.6 g, 36.5 %ile based on LMP age. IMPRESSION: 1. Single live intrauterine gestation of 16 weeks 3 days by ultrasound cri teria. 2. Estimated date of delivery of 03/16/2019. RPTAT: HH .Shruthi Moore MD, Date Time Electronically viewed and signed by .Shruthi Moore MD, on 10/02/2018 14:40 .G/ CC: IFTIKHAR WRIGHT PA-C [id number] LAB INTERPRETATION: CBC shows no evidence of hemorrhage or infection Chemistry shows no evidence of significant electrolyte abnormalities or renal insufficiency Liver function test shows no evidence of acute biliary or hepatic dysfunction Lipase shows no evidence of acute pancreatitis HCG 74473.0 UA unremarkable ER COURSE: The patient was given Tylenol. The medication was well tolerated and the patient reports improvement in sym ptoms. The patient was stable throughout ED course. I kept the patient and/or family informed of laboratory and diagnostic imaging results throughout the emergency room course. The patient was promptly evaluated and a treatment plan was devised based on H&P and other data. This plan was discussed with the patient who agreed and had no further questions or concerns prior to discharge. MEDICAL DECISION MAKING: This is a 23 yo female presents with lower pelvic discomfort/cramping this morning at roughly 16 weeks . Ultrasound was ordered to rule out placenta previa, placental abruption, premature rupture of brains and to check heart tones fetus. Patient is blood type O+ and does not require any RhoGam. CBC is unremarkable with no signs of anemia or hemorrhage. Patient is hemodynamically stable. Urinalysis is unremarkable. Ultrasound shows a closed competent cervix with no appearance of central previa or abruption. Ultrasound shows a single intrauterine gestation with a heart rate of 137 bpm. Advised patient follow-up with her [employer]PERATING [employer]ATRE TECHNICIAN specialist in the next 48-72 hours for repeat labs/us. At this time there is no OPERATING THEATRE TECHNICIAN emergency. Return to ED with any w orsening symptoms. DISPOSITION PLAN: We discussed follow up with the patient's primary care doctor within 24 to 48 hours. Patient counseled regarding my diagnostic impression and care plan. Prior to discharge all questions answered. Pt agrees with treatment plan and understands strict return precautions. Precautionary instructions provided including instructions to return to the ER if not improving or for any worsening or changing symptoms or concerns. SPECIALIST FOLLOW UP RECOMMENDED: obgyn Patient has been advised to follow up with primary care in 1-2 days. Disclaimer: Inadvertent spelling and grammatical errors are likely due to EHR/dictation software use and do not reflect on the overall quality of patient care. Also, please note that the electronic time recorded on this note does not necessarily reflect the actual time of the patient encounter. Departure Diagnosis: Primary Impression: Pelvic pain during Condition: Stable Patient Instructions: Pelvic Pain In : Unclear (2-3 Trimester), Vaginal Bleed in Referrals: [employer] THEATRE TECHNICIAN REFERRAL LIST Additional Instructions: Follow-up with your OB specialist in the next 48 to 72 hours to have repeat ultrasound and possibly repeat labs. Patient advised to return to the ED immediately for new or worsening symptoms. Patient advised to follow up with primary care provider in the next 24-48 hours. Patient verbalized understanding and agrees with treatment plan and course of action. If patient has no primary care they may follow up with one of the community clinics listed on the following page or one of the options listed below [facility] [address] [place] [id number] or [facility] [id number] [place] [id number] or [facility] [address] [place] [address] IFTIKHAR WRIGHT PA-C October 02, 2018 13:33
[2018-10-02 16:06] VITALS: BP 102/59; PULSE 80
== END 2018-10-02 16:08 | disposition home or self-care (01) ==
LOC: FTE 11:35
DX: O26.892 Other specified pregnancy related conditions, second trimester (principal); R10.2 Pelvic and perineal pain; Z3A.16 16 weeks gestation of pregnancy
CPT/HCPCS: 76805; 80053; 81003; 84702; 85025; 86900; 86901; 96360; 96361; J7030; Z7502; Z7610

== ENCOUNTER 2019-01-07 11:21 | Inpatient (IN) | payer BC ==
[~2019-01-07] VITALS: Ht 160 cm; Wt 76.2 kg
[~2019-01-07 11:21] MED LIST changes: +FERR256T PO; +FOLI-49 PO; +LEVE100018 PO; +PNV11TAB PO
[2019-01-07 11:46] VITALS: BP 92/51; PULSE 98; RESP 20
[2019-01-07] MEDS ORDERED: ACETAMINOPHEN 325 MG TAB PO STA (16:59)
[2019-01-07] MEDS ORDERED: LACTATED RINGER'S 1,000 ML IV ONE (17:00)
[2019-01-07] MEDS ORDERED: MAGNESIUM SULFATE 20 GM/500 ML 500 ML IV SCH (20:16)
[2019-01-07] MEDS ORDERED: ACETAMINOPHEN 325 MG TAB PO PRN (20:30)
[2019-01-07] MEDS ORDERED: MAGNESIUM SULFATE 4 GM/100 ML 100 ML IV ONE (20:30)
[2019-01-07] MEDS: AMPICILLIN 2 GM/NS (PMX) 100 ML IV SCH (22:04)
[2019-01-07] MEDS: LACTATED RINGER'S 1,000 ML IV SCH (22:04)
[2019-01-07] MEDS: BETAMET NA PHOS/AC(6 MG/ML) 2 ML INJ SYG IM SCH (22:08)
[2019-01-08] MEDS: LEVETIRACETAM 500 MG TAB PO SCH ×3 (00:09→22:08)
[2019-01-08] MEDS: AMPICILLIN 2 GM/NS (PMX) 100 ML IV SCH ×4 (04:05→21:04)
[2019-01-08] MEDS: PRENATAL VITAMIN PO SCH (08:59)
[2019-01-08] MEDS: FERROUS SULFATE (EC) 325 MG TAB PO SCH (09:00)
[2019-01-08] MEDS: FOLIC ACID 1 MG TAB PO SCH (09:00)
[2019-01-08] MEDS: MAGNESIUM SULFATE 40GM/1000ML 1,000 ML IV SCH (09:05)
[2019-01-08] MEDS: LACTATED RINGER'S 1,000 ML IV SCH (14:47)
[2019-01-08] MEDS: BETAMET NA PHOS/AC(6 MG/ML) 2 ML INJ SYG IM SCH (22:08)
[2019-01-09] MEDS: AMPICILLIN 2 GM/NS (PMX) 100 ML IV SCH ×4 (02:41→22:25)
[2019-01-09] MEDS: MAGNESIUM SULFATE 40GM/1000ML 1,000 ML IV SCH (02:58)
[2019-01-09] MEDS: FOLIC ACID 1 MG TAB PO SCH (09:58)
[2019-01-09] MEDS: PRENATAL VITAMIN PO SCH (09:58)
[2019-01-09] MEDS: FERROUS SULFATE (EC) 325 MG TAB PO SCH (09:58)
[2019-01-09] MEDS: LACTATED RINGER'S 1,000 ML IV SCH ×2 (09:58→20:02)
[2019-01-09] MEDS: LEVETIRACETAM 500 MG TAB PO SCH ×2 (09:59→22:26)
[2019-01-09] MEDS: DOCUSATE SODIUM 100 MG CAP PO SCH (10:17)
[2019-01-10] MEDS: AMPICILLIN 2 GM/NS (PMX) 100 ML IV SCH ×2 (04:52→10:10)
[2019-01-10] MEDS: PRENATAL VITAMIN PO SCH (08:43)
[2019-01-10] MEDS: FOLIC ACID 1 MG TAB PO SCH (08:43)
[2019-01-10] MEDS: FERROUS SULFATE (EC) 325 MG TAB PO SCH (08:43)
[2019-01-10] MEDS: LEVETIRACETAM 500 MG TAB PO SCH (08:43)
[2019-01-10] MEDS: DOCUSATE SODIUM 100 MG CAP PO SCH (09:00)
[2019-01-10] MEDS: LACTATED RINGER'S 1,000 ML IV SCH (09:17)
== END 2019-01-10 13:40 | disposition home or self-care (01) | DRG 833 ==
LOC: OBT 11:21 → L-D 11:21 → OBT 20:15 → L-D 20:15
PROVIDERS: ADMIT Obstetrics & Gynecology; ATTEND Obstetrics & Gynecology
DX: O23.43 Unspecified infection of urinary tract in pregnancy, third trimester (principal); O35.0XX0 Maternal care for (suspected) central nervous system malformation in fetus, not applicable or unspecified; Z3A.30 30 weeks gestation of pregnancy
CPT/HCPCS: 36415; 76817; 76818; 81001; 82731; 83735; 87086; 96360; 96361; G0463; J0290; J0702; J3475; J7120

== ENCOUNTER 2019-02-17 16:33 | Outpatient (CLI) | payer BC ==
[~2019-02-17] VITALS: Ht 157.5 cm; Wt 78.2 kg
[~2019-02-17 16:33] MED LIST changes: -ACET500C5 PO; -CEPH-443 PO; -HYDR-3980 PO; -IBUP-1542 PO; -LEVE-5 PO; -LEVE750T70 PO; -METO10TA92 PO
[2019-02-17 16:35] VITALS: BP 107/60; PULSE 103; RESP 18
[2019-02-17 16:36] VITALS: Ht 157.5 cm; Wt 78.2 kg
== END 2019-02-17 18:24 | disposition home or self-care (01) ==
LOC: L-D 16:33 → OBT 16:33
PROVIDERS: ATTEND Obstetrics & Gynecology
DX: O99.353 Diseases of the nervous system complicating pregnancy, third trimester (principal); G40.909 Epilepsy, unspecified, not intractable, without status epilepticus; Z3A.35 35 weeks gestation of pregnancy
CPT/HCPCS: 76818; Z7500; G0463

== ENCOUNTER 2019-02-22 17:44 | Outpatient (CLI) | payer BC ==
[~2019-02-22] VITALS: Ht 160 cm; Wt 80.9 kg
[2019-02-22 18:42] VITALS: Ht 160 cm; Wt 80.9 kg
[2019-02-22] MEDS ORDERED: ACETAMINOPHEN 500 MG TAB PO STA (18:45)
== END 2019-02-22 20:54 | disposition home or self-care (01) ==
LOC: OBT 17:44 → L-D 17:46 → OBT 20:54
PROVIDERS: ATTEND Obstetrics & Gynecology
DX: O62.9 Abnormality of forces of labor, unspecified (principal); Z3A.36 36 weeks gestation of pregnancy
CPT/HCPCS: 76818; Z7500; Z7610; G0463

== ENCOUNTER 2019-03-02 11:37 | Outpatient (CLI) | payer BC ==
[~2019-03-02] VITALS: Ht 157.5 cm; Wt 80.5 kg
[2019-03-02 12:02] VITALS: BP 106/91; PULSE 79; RESP 18
== END 2019-03-02 14:23 | disposition home or self-care (01) ==
LOC: OBT 11:37 → L-D 11:37 → OBT 14:23
PROVIDERS: ATTEND Obstetrics & Gynecology
DX: O62.9 Abnormality of forces of labor, unspecified (principal); Z3A.37 37 weeks gestation of pregnancy
CPT/HCPCS: 76815; 76818; Z7500; G0463

== ENCOUNTER 2019-03-10 16:49 | Inpatient (IN) | payer BC ==
[~2019-03-10] VITALS: Ht 160 cm; Wt 80.8 kg
[2019-03-10 17:59] VITALS: BP 109/64; PULSE 75; RESP 19; Ht 160 cm; Wt 80.8 kg
[2019-03-10] MEDS ORDERED: OXYTOCIN 30 UNITS/LR 500 ML IV PRN (19:00)
[2019-03-10] MEDS ORDERED: LIDOCAINE 1% (MPF) 30 ML INJ INJ PRN (19:00)
[2019-03-10] MEDS ORDERED: IBUPROFEN 600 MG TAB PO PRN (19:00)
[2019-03-10] MEDS ORDERED: BUTORPHANOL 2 MG INJ IV PRN (19:00)
[2019-03-10] MEDS ORDERED: AMPICILLIN 2 GM/NS (PMX) 100 ML IV ONE (19:00)
[2019-03-10] MEDS ORDERED: OXYTOCIN 30 UNITS/LR 500 ML IV SCH ×2 (19:00)
[2019-03-10] MEDS ORDERED: METHYLERGONOVINE 0.2 MG INJ IM PRN (19:00)
[2019-03-10] MEDS ORDERED: CARBOPROST 250 MCG INJ IM PRN (19:00)
[2019-03-10] MEDS ORDERED: MISOPROSTOL 200 MCG TAB PR PRN (19:00)
[2019-03-10] MEDS ORDERED: MINERAL OIL LIGHT 10 ML VIAL TOP PRN (19:00)
[2019-03-10] MEDS: LACTATED RINGER'S 1,000 ML IV SCH (19:06)
[2019-03-10] MEDS: LEVETIRACETAM 500 MG TAB PO SCH (20:56)
[2019-03-10] MEDS: AMPICILLIN 1 GM/NS (PMX) 50 ML IV SCH (23:15)
[2019-03-11] MEDS ORDERED: OXYTOCIN 30 UNITS/LR 500 ML IV SCH (01:00)
[2019-03-11] MEDS: LACTATED RINGER'S 1,000 ML IV SCH ×4 (02:00→15:58)
[2019-03-11] MEDS ORDERED: ACETAMINOPHEN 325 MG TAB PO PRN (02:30)
[2019-03-11] MEDS: AMPICILLIN 1 GM/NS (PMX) 50 ML IV SCH ×5 (03:20→19:16)
[2019-03-11] MEDS: LEVETIRACETAM 500 MG TAB PO SCH ×2 (09:14→21:00)
[2019-03-11] MEDS ORDERED: DIPHENHYDRAMINE 50 MG INJ IV PRN (15:00)
[2019-03-11] MEDS ORDERED: NALOXONE (0.4 MG/ML) INJ IV PRN (15:00)
[2019-03-11] MEDS ORDERED: ONDANSETRON 4 MG INJ IV PRN (15:00)
[2019-03-11] MEDS ORDERED: MINERAL OIL LIGHT 10 ML VIAL TOP ONE (16:30)
[2019-03-11] MEDS: FENTAnyl 2MCG/ML-ROPIV 0.2% 100 ML BAG EPI SCH ×2 (16:39→22:02)
[2019-03-12 03:00] VITALS: BP 124/69; PULSE 58; RESP 18
[2019-03-12] MEDS ORDERED: CARBOPROST 250 MCG INJ IM PRN (03:30)
[2019-03-12] MEDS ORDERED: WITCH HAZEL/GLYCERIN PAD PR PRN (03:30)
[2019-03-12] MEDS ORDERED: OXYTOCIN 30 UNITS/LR 500 ML IV PRN (03:30)
[2019-03-12] MEDS ORDERED: METHYLERGONOVINE 0.2 MG INJ IM PRN (03:30)
[2019-03-12] MEDS ORDERED: BENZOCAINE 20% 56 ML SPRAY TOP PRN (03:30)
[2019-03-12] MEDS ORDERED: OXYCODONE/ASPIRIN (4.88/325) TAB PO PRN ×2 (03:30)
[2019-03-12] MEDS ORDERED: MISOPROSTOL 200 MCG TAB PR PRN (03:30)
[2019-03-12] MEDS ORDERED: LANOLIN HPA 1 PKT TOP PRN (03:30)
[2019-03-12] MEDS ORDERED: ZOLPIDEM 5 MG TAB PO PRN (03:30)
[2019-03-12 03:45] VITALS: BP 127/74; PULSE 61; RESP 18
[2019-03-12] MEDS: IBUPROFEN 600 MG TAB PO SCH ×4 (06:00→23:40)
[2019-03-12 08:30] VITALS: BP 99/57; PULSE 80; RESP 17
[2019-03-12] MEDS ORDERED: LEVETIRACETAM 500 MG TAB PO SCH (09:00)
[2019-03-12] MEDS: LEVETIRACETAM 500 MG TAB PO SCH ×2 (09:49→21:45)
[2019-03-12] MEDS: SENNA/DOCUSATE NA (8.6MG/50MG) TAB PO SCH ×2 (09:49→21:43)
[2019-03-12 12:00] VITALS: BP 97/55; PULSE 85; RESP 18
[2019-03-12 16:34] VITALS: BP 102/59; PULSE 73; RESP 16
[2019-03-12 20:00] VITALS: BP 103/56; PULSE 77; RESP 17
[2019-03-13 04:00] VITALS: BP 100/62; PULSE 80; RESP 18
[2019-03-13] MEDS: IBUPROFEN 600 MG TAB PO SCH ×3 (06:22→17:41)
[2019-03-13 08:00] VITALS: BP 114/74; PULSE 75; RESP 18
[2019-03-13] MEDS: LEVETIRACETAM 500 MG TAB PO SCH ×2 (10:22→21:42)
[2019-03-13] MEDS: SENNA/DOCUSATE NA (8.6MG/50MG) TAB PO SCH ×2 (10:22→21:42)
[2019-03-13] MEDS: FERROUS SULFATE (EC) 325 MG TAB PO SCH (13:18)
[2019-03-13] MEDS: ASCORBIC ACID 500 MG TAB PO SCH (13:18)
[2019-03-13 16:00] VITALS: BP 121/58; PULSE 59; RESP 16
[2019-03-13 20:00] VITALS: BP 100/55; PULSE 87; RESP 17
[2019-03-14] MEDS: IBUPROFEN 600 MG TAB PO SCH ×3 (00:34→12:25)
[2019-03-14 04:00] VITALS: BP 118/69; PULSE 75; RESP 18
[2019-03-14 08:00] VITALS: BP 113/65; PULSE 64; RESP 18
[2019-03-14] MEDS ORDERED: DIPHTH/TET/ACEL PERTUSS (ADULT) 0.5 ML VIAL IM* ONE (09:00)
[2019-03-14] MEDS: FERROUS SULFATE (EC) 325 MG TAB PO SCH (09:53)
[2019-03-14] MEDS: ASCORBIC ACID 500 MG TAB PO SCH (09:53)
[2019-03-14] MEDS: SENNA/DOCUSATE NA (8.6MG/50MG) TAB PO SCH (09:53)
[2019-03-14] MEDS: LEVETIRACETAM 500 MG TAB PO SCH (09:53)
[2019-03-14 15:50] VITALS: BP 110/81; PULSE 66; RESP 16
== END 2019-03-14 16:30 | disposition home or self-care (01) | DRG 807 ==
LOC: OBT 16:49 → L-D 16:49 → OBT 18:15 → L-D 18:33 → PP1 03-12 02:48
PROVIDERS: ADMIT Obstetrics & Gynecology Gynecology; ATTEND Obstetrics & Gynecology
PROC: 10E0XZZ Delivery of Products of Conception, External Approach (ICD-10-PCS; principal; 2019-03-12)
PROC: 0UQGXZZ Repair Vagina, External Approach (ICD-10-PCS; 2019-03-12)
DX: O71.4 Obstetric high vaginal laceration alone (principal); O99.214 Obesity complicating childbirth; Z3A.39 39 weeks gestation of pregnancy; Z37.0 Single live birth
CPT/HCPCS: 62322; 76815; 76818; 85025; 85610; 85730; 86592; 86850; 86900; 86901; 87340; G0463; J0290; J0595; J2590; J3010; J7120